=== PATIENT | female | born 1990 ===

== ENCOUNTER 2020-09-17 00:31 | Emergency (ER) | payer SELFPAY ==
[2020-09-17 00:41] VITALS: BP 123/75; PULSE 73; RESP 20; TEMP 37.2; O2SAT 100
--- NOTE | 2020-09-17 02:28 | PC.NURSE ---
Pt up to desk asking to have her IV removed. PT states she is feeling much better and would like to go home. Pt alert and oriented x 4 ambulating with a steady gait and states she has a ride home. Pt reports having a safe place to go tonight and denies any need for further medical care. Pt given a physicians directory so that she may find a primary care physician in the future.
== END 2020-09-18 04:29 | disposition left against medical advice (07) ==
DX: R43.8 Other disturbances of smell and taste (principal)
CPT/HCPCS: 99199